=== PATIENT | male | born 1995 | race Caucasian/White ===

== ENCOUNTER 2016-10-05 10:36 | Emergency (ER) | payer OTHER, MEDICAID ==
[~2016-10-05] VITALS: Ht 167.6 cm; Wt 60.8 kg
[2016-10-05 10:40] VITALS: BP 129/66
--- NOTE | 2016-10-05 13:32 | NUR ---
Patient ambulated to bed 8. RN evaluating patient at bedside.
--- NOTE | 2016-10-05 13:36 | NUR ---
PT PRESENTS TO ER W/C/O RASH TO JAYSON UE, JAYSON LE, TRUNK X2 WEEKS. PT UNSURE IF HE WAS EXPOSED TO ANY ALLERGEN. PT DENIES ANY MEDICAL HX.PT STATES RASHES COMES AND GO WITHOUT TAKING ANY MEDICATION.PT STATES IF HE HAS A RASH HE HAS TROUBLE BREATHING; DENIES N/V/D; SKIN IS PINK/WARM/DRY; AAOX4 WITH EVEN AND STEADY GAIT; LUNGS CLEAR BL; HR EVEN AND REGULAR; PT DENIES ANY FEVER, SOB, CP OR COUGH AT THIS TIME; PATIENT STATES PAIN OF 0/10 AT THIS TIME;PATIENT POSITIONED FOR COMFORT; HOB ELEVATED; BEDRAILS UP X2; BED DOWN.
--- NOTE | 2016-10-05 14:23 | NUR ---
Dr. Martin evaluating patient at bedside.
--- NOTE | 2016-10-05 14:38 | NUR ---
PT AMBULATED TO THE RESTROOM
--- NOTE | 2016-10-05 15:12 | NUR ---
PT RESTING ON BED; NO ACUTE DISTRESS NOTED;WILL CONTINUE TO MONITOR PT.
--- NOTE | 2016-10-05 15:45 | NUR ---
Patient discharged with v/s stable. Written and verbal after care instructions given and explained. Patient alert, oriented and verbalized understanding of instructions. Ambulatory with steady gait. All questions addressed prior to discharge. ID band removed. Patient advised to follow up with PMD. Rx of CLARITIN given. Patient educated on indication of medication including possible reaction and side effects. Opportunity to ask questions provided and answered.
[2016-10-05 15:46] VITALS: BP 124/66
== END 2016-10-05 15:45 | disposition home or self-care (01) ==
LOC: MED 10:36
DX: L50.9 Urticaria, unspecified (principal); F12.90 Cannabis use, unspecified, uncomplicated